=== PATIENT | male | born 1975 | race Caucasian/White ===

== ENCOUNTER 2017-02-06 02:45 | Emergency (ER) | payer SELFPAY ==
[~2017-02-06] VITALS: Ht 167.6 cm; Wt 114.1 kg
[2017-02-06 02:53] VITALS: Ht 167.6 cm; Wt 114.1 kg
[2017-02-06 02:56] VITALS: O2SAT 95
[2017-02-06] MEDS ORDERED: ALUMINUM/MAGNESIUM SUSP 30 ML UDC PO STA (02:56)
[2017-02-06] MEDS ORDERED: LIDOCAINE HCL 2% VISC SOLN 20 ML UDC PO STA (02:56)
[2017-02-06] MEDS ORDERED: OMEP20CA59 PO (02:58)
[2017-02-06 03:05] LABS: BASO % 0.2 %; BASO ABS # 0.02 K/uL (0-0.2); COMPLETE YES; EOS % 1.6 %; HEMATOCRIT 44.5 % (42-52); IG% 0.8 %; LYMPH ABS # 2.75 K/uL (1.2-3.4); MEAN CELL VOLUME 81.7 fL (80-100); MEAN CORPUSCULAR HEMOGLOBIN 27.3 pg (25-34); MEAN CORPUSCULAR HGB CONC 33.5 g/dl (32-36); MEAN PLATELET VOLUME 9.2 fL (7.4-10.4); MONO % 6.5 %; NEUT % 60.9 %; PLATELET COUNT 267 K/uL (130-400); RED BLOOD COUNT 5.45 M/uL (4.7-6.1); WHITE BLOOD COUNT 9.18 K/uL (4.8-10.8)
[2017-02-06 03:21] LABS: ALT/SGPT 61 U/L (12-78); AST/SGOT 22 U/L (15-37); BLOOD UREA NITROGEN 16 mg/dl (7-18); BUN/CREATININE RATIO 14.3 (10-20); CALCIUM 8.7 mg/dl (8.5-10.1); CARBON DIOXIDE 30 mmol/L (21-32); CHLORIDE 105 mmol/L (98-107); GLUCOSE 152 mg/dl (70-99); SODIUM 142 mmol/L (136-145)
[2017-02-06 03:24] LABS: ALKALINE PHOSPHATASE 105 U/L (45-117)
[2017-02-06] MEDS ORDERED: FAMOTIDINE 20MG/102 ML D5W IV STA (03:29)
[2017-02-06 05:20] VITALS: BP 138/90; PULSE 90; O2SAT 94
--- NOTE | 2017-02-06 05:43 | EMERGENCY ROOM VISIT NOTE ---
History First contact with patient: 02:47 Chief Complaint: CHEST PAIN Stated Complaint: CHEST PAIN Nursing Triage Summary: pt c/o left sided cp that started after he woke and went to the bathroom, he then went back to bed and layed down and develoepd the pain, sharp pain radiating into his back, states was sweaty a little bit at first. History of Present Illness The patient is a 41 year old male who presents to the Emergency Room with complaints of epigastric chest pain that radiates to his back for the past half hour described as aching, ranging in severity was 7 out of 10 but now is 4 out of 10. Nothing makes it better or worse. Patient is from [place] and drove down for the holiday. Last year he had a similar chest pain episode and had a stress test that was normal per patient. Patient does have diabetes. No family history of heart disease. He occasionally smokes marijuana. Patient denies tobacco use, high blood pressure, cholesterol. Patient denies nausea, vomiting, diarrhea, diaphoresis, leg pain or swelling. No neck pain, jaw pain or arm pain. Review of Systems See HPI for pertinent positives & negatives. A total of 10 systems reviewed and were otherwise negative. Past Medical/Surgical History Diabetes, GERD Social History Smoking Status: Never Smoker Alcohol Use: occasionally Drug Use: marijuana Marital Status: Housing Status: lives with family Occupation Status: employed Current/Historical Medications Scheduled Omeprazole (Prilosec), 20 MG PO DAILY Allergies Coded Allergies: No Known Allergies (Unverified , 02/06/17) Physical Exam Vital Signs Date Time Temp Pulse Resp B/P Pulse Ox O2 Delivery O2 Flow Rate FiO2 02/06/17 05:20 90 19 94 Room Air 02/06/17 05:05 82 14 136/85 90 02/06/17 04:50 93 21 95 02/06/17 04:35 86 18 140/83 96 02/06/17 04:22 87 18 139/91 95 Room Air 02/06/17 03:50 90 14 96 02/06/17 03:35 95 20 95 02/06/17 03:30 91 16 118/73 96 Room Air 02/06/17 03:15 98 16 97 Room Air 02/06/17 03:05 94 20 95 Room Air 02/06/17 03:00 88 21 136/88 92 Room Air 02/06/17 02:57 93 02/06/17 02:56 95 Room Air 02/06/17 02:55 92 22 95 02/06/17 02:53 95 19 140/110 95 Room Air 02/06/17 02:50 140/101 Physical Exam VITALS: Vitals are noted on the nurse's note and reviewed by myself. Vital signs stable. GENERAL: Pleasant male, in no acute distress, nondiaphoretic, well-developed well-nourished. SKIN: The skin was without rashes, erythema, edema, or bruising. There is no tenting of the skin. Capillary reflex less than 2 seconds. HEAD: Normocephalic atraumatic. EARS: External auditory canals clear, tympanic membranes pearly cantu without erythema or effusion bilaterally. EYES: Pupils equal round and reactive to light and accommodation. Conjunctivae without injection, sclerae without icterus. Extraocular movements intact. NOSE: Patent, turbinates without inflammation or discharge MOUTH: Mucous membranes moist Pharynx without erythema or exudate. Uvula midline. Airway patent. Tongue does not deviate. NECK: Supple without nuchal rigidity. No lymphadenopathy. No thyromegaly. Cervical spine is nontender. No JVD. HEART: Regular rate and rhythm without murmurs gallops or rubs. LUNGS: Clear to auscultation bilaterally without wheezes, rales or rhonchi. No dullness to percussion. No retractions or accessory muscle use. ABDOMEN: Positive bowel sounds x 4. Normal tympanic percussion. Soft, protuberant, obese, tender to palpation epigastric region, no CVA tenderness, without masses or organomegaly. Ho sign negative. No guarding or rebound tenderness. MUSCULOSKELETAL: No muscle atrophy, erythema, or edema noted. NEURO: Patient was alert and oriented to person place and time. Normal sensation to light and sharp touch. No focal neurological deficits. Medical Decision & Procedures Laboratory Results 02/06/17 02:57 Red Blood Count 5.45, Mean Corpuscular Volume 81.7, Mean Corpuscular Hemoglobin 27.3, Mean Corpuscular Hemoglobin Concent 33.5, Mean Platelet Volume 9.2, Neutrophils (%) (Auto) 60.9, Lymphocytes (%) (Auto) 30.0, Monocytes (%) (Auto) 6.5, Eosinophils (%) (Auto) 1.6, Basophils (%) (Auto) 0.2, Neutrophils # (Auto) 5.59, Lymphocytes # (Auto) 2.75, Monocytes # (Auto) 0.60, Eosinophils # (Auto) 0.15, Basophils # (Auto) 0.02 02/06/17 02:57 Test 02/06/17 02:57 02/06/17 05:23 White Blood Count 9.18 K/uL (4.8-10.8) Red Blood Count 5.45 M/uL (4.7-6.1) Hemoglobin 14.9 g/dL (14.0-18.0) Hematocrit 44.5 % (42-52) Mean Corpuscular Volume 81.7 fL (80-100) Mean Corpuscular Hemoglobin 27.3 pg (25-34) Mean Corpuscular Hemoglobin Concent 33.5 g/dl (32-36) Platelet Count 267 K/uL (130-400) Mean Platelet Volume 9.2 fL (7.4-10.4) Neutrophils (%) (Auto) 60.9 % Lymphocytes (%) (Auto) 30.0 % Monocytes (%) (Auto) 6.5 % Eosinophils (%) (Auto) 1.6 % Basophils (%) (Auto) 0.2 % Neutrophils # (Auto) 5.59 K/uL (1.4-6.5) Lymphocytes # (Auto) 2.75 K/uL (1.2-3.4) Monocytes # (Auto) 0.60 K/uL (0.11-0.59) Eosinophils # (Auto) 0.15 K/uL (0-0.5) Basophils # (Auto) 0.02 K/uL (0-0.2) RDW Standard Deviation 38.3 fL (36.4-46.3) RDW Coefficient of Variation 12.9 % (11.5-14.5) Immature Granulocyte % (Auto) 0.8 % Immature Granulocyte # (Auto) 0.07 K/uL (0.00-0.02) D-Dimer 190 ug/L FEU (0-500) Anion Gap 7.0 mmol/L (3-11) Est Creatinine Clear Calc Drug Dose 104.9 ml/min Estimated GFR () 96.1 Estimated GFR (Non- 82.9 BUN/Creatinine Ratio 14.3 (10-20) Calcium Level 8.7 mg/dl (8.5-10.1) Total Bilirubin 0.3 mg/dl (0.2-1) Direct Bilirubin < 0.1 mg/dl (0-0.2) Aspartate Amino Transf (AST/SGOT) 22 U/L (15-37) Alanine Aminotransferase (ALT/SGPT) 61 U/L (12-78) Alkaline Phosphatase 105 U/L (45-117) Troponin I < 0.015 ng/ml (0-0.045) Total Protein 7.8 gm/dl (6.4-8.2) Albumin 3.7 gm/dl (3.4-5.0) Lipase 336 U/L (73-393) Bedside Troponin I 0.000 ng/ml (0-0.045) Medications Administered Medications (Trade) Dose Ordered Sig/Steve Route Start Time Stop Time Status Last Admin Dose Admin Lidocaine HCl (Viscous Lidocaine 2% Soln) 10 ml NOW STAT PO 02/06/17 02:56 02/06/17 02:57 DC 02/06/17 03:12 10 ML Al Hydroxide/Mg Hydroxide (Maalox Susp) 30 ml NOW STAT PO 02/06/17 02:56 02/06/17 02:57 DC 02/06/17 03:12 30 ML Famotidine (Pepcid 20mg/100 ml) 20 mg ONE STAT IV 02/06/17 03:29 02/06/17 03:30 DC 02/06/17 03:43 20 MG ED Course Prior records/ancillary studies reviewed. Triage Nursing notes reviewed. Additional history obtained from famil. The patient's history was concerning for chest pain. Differential diagnosis: Etiologies such as cardiac ischemia, GERD, pancreatitis, cholecystitis, aortic dissection, pulmonary embolism, pneumonia, pneumothorax, musculoskeletal, infections, pericarditis, myocarditis, esophageal rupture, gastrointestinal, as well as others were entertained. Physical examination: As above. ER treatment provided: GI cocktail On reassessment the patient felt better. Diagnostic interpretation by me: The electrocardiogram was negative for pathologic change. Normal sinus, normal intervals, no acute ST-T wave changes. Impression normal sinus rhythm interpreted by myself The labs revealed 2 troponins that are -2 hours apart, negative d-dimer No leukocytosis. No anemia Imaging studies: Chest x-ray with elevated right hemidiaphragm, no acute consolidation, pneumothorax or free air per my interpretation US RUQ: No prior Gallbladder appears partially contracted. Sludge. No shadowing gallstones. No wall thickening. Caliber of visualized CBD upper limits normal measuring slightly under 6 mm. Pancreas is obscured. Liver is prominent in size measuring over 21 cm with suspected increased echogenicity and suggestion of fatty sparing adjacent to gallbladder. Radiologist: Dwayne Baez M.D. Exam and history seem consistent with chest pain most likely related to reflux. Patient felt much better to the GI cocktail. He is asymptomatic. He has history of GERD. Symptoms felt similar for him. He was advised to continue his acid reflux medication of Protonix and take Zantac or maalox for break his symptoms. He was advised to follow-up in a day or 2 with his family care doctor in [place] for further evaluation and workup here in the ER sooner for chest pain, difficulty breathing, worsening signs or symptoms or as needed. Patient had a normal EKG. 2 troponins that were negative for 2 hours apart. Negative d-dimer. By the evaluation outlined above emergent etiologies such as cardiac ischemia, aortic dissection, pulmonary embolism, pneumonia, pneumothorax, infections, pericarditis, myocarditis, gastrointestinal, as well as others were deemed relatively unlikely. The pt informed about the findings as listed above. All questions were answered and pleased with the treatment. Return instructions were outlined and the patient was discharged in stable condition. Referral: The patient was referred back to primary care physician for follow-up in 2 to 3 days for a recheck of the current condition. Case reviewed with my attending Medical Decision as above Impression Primary Impression: Epigastric abdominal pain Departure Information Dispostion Home / Self-Care Condition GOOD Referrals No Doctor, Assigned (PCP) Patient Instructions My [facility] Additional Instructions Protonix 40 m tablet daily for next 2 weeks. Take this on an empty stomach. Monitor your blood sugar. It was high today. Try Maalox or Zantac for breakthrough symptoms for reflux. Avoid large meals. Avoid acidic foods. Rest and drink plenty of fluids as tolerated. Continue current medications. Avoid strenuous activities and anything that worsens your pain. Resume normal activities once your symptoms resolve. Return to the ER immediately for worsening or persistent chest pain, abdominal pain, black or blood in your stools, vomiting, fevers, chest pains, difficulty breathing, worsening of your condition, or as needed. Follow up with your primary physician in 2-3 days for a recheck of your current condition.
[2017-02-06] MEDS ORDERED: PANTOprazole SOD 40 MG TAB PO STA (05:44)
[2017-02-06] MEDS ORDERED: PANT40TA PO (05:45)
--- NOTE | 2017-02-06 06:58 | DIAGNOSTIC IMAGING REPORT ---
[facility] ultrasound GALLBLADDER-ABD LIMITED CLINICAL HISTORY: epigastric pain, ? GB pain. Nausea. TECHNIQUE: Ultrasound COMPARISON STUDY: None FINDINGS: Somewhat contracted gallbladder. Small amount of gallbladder sludge. No shadowing gallstones. Common bile duct 5 mm. Fatty infiltration of liver. Nonvisualization of the pancreas due to bowel content. Right kidney is negative for hydronephrosis. IMPRESSION: 1. Small amount sludge within a slightly contracted gallbladder. 2. Fatty infiltration of liver. 3. Otherwise negative study Electronically signed by: Adrian House M.D. 02/06/2017 6:56 AM Dictated Date/Time: 02/06/2017 6:54 AM
--- NOTE | 2017-02-06 07:18 | DIAGNOSTIC IMAGING REPORT ---
CHEST ONE VIEW PORTABLE HISTORY: Atypical CHEST PAIN COMPARISON: None. FINDINGS: The lungs are clear. Cardiac silhouette is normal in size. No pleural effusions. No pneumothorax. Mild elevation of the right hemidiaphragm. IMPRESSION: Mild elevation of the right hemidiaphragm. Otherwise, no acute process within the chest. Electronically signed by: Parviz Akbar M.D. 02/06/2017 7:16 AM Dictated Date/Time: 02/06/2017 7:16 AM
== END 2017-02-06 05:55 | disposition home or self-care (01) ==
LOC: C.EDB 02:47
DX: R10.13 Epigastric pain (principal); E11.9 Type 2 diabetes mellitus without complications; K21.9 Gastro-esophageal reflux disease without esophagitis; Z79.899 Other long term (current) drug therapy